=== PATIENT | female | born 1985 | race African-American/Black ===

== ENCOUNTER 2022-04-17 08:26 | Emergency (ER) | payer OTHER, SELFPAY ==
[2022-04-17 08:39] VITALS: BP 120/62; PULSE 62; RESP 16; TEMP 36; O2SAT 99
--- NOTE | 2022-04-17 09:15 | ED.URI ---
HPI - URI/Sore Throat General Chief Complaint: Upper Respiratory Infection Stated Complaint: uri Time Seen by Provider: 04/17/22 09:15 Source: patient and RN notes reviewed Mode of arrival: ambulatory Limitations: no limitations History of Present Illness HPI Narrative: 36 year female presented for complaint of sinus pressure and congestion for 2 weeks. Endorses mild nonproductive cough. She denies shortness of breath, wheezing, nausea, vomiting, diarrhea, fevers or chills. She has taken qiwc-jrp-crrhbqo medication without relief in symptoms. She is currently . MD elicited complaint: cough Related Data Home Medications Medication Instructions Recorded Confirmed ferrous sulfate 325 mg (65 mg 325 mg PO DAILY 04/17/22 04/17/22 iron) tablet norethindrone (contraceptive) 0.35 0.35 mg PO DAILY 04/17/22 04/17/22 mg tablet Allergies Allergy/AdvReac Type Severity Reaction Status Date / Time No Known Allergies Allergy Verified 04/17/22 08:59 Review of Systems Review of Systems: Per HPI [facility] Family History Family History Father Family history of endocrine disorder Hypertension Family history of elevated blood lipids Mother Patient's mother is in good health Social History Social History Smoking status: Never smoker Alcohol intake: current Exam Narrative: GENERAL: well-appearing EYES: PERRLA, conjunctivae clear ENT: Mucous membranes moist. TMs pearly [place] with dull light reflex bilaterally; no tragal tenderness. Oropharynx mildly erythematous without lesions or exudate CHEST: Clear to auscultation, breath sounds equal. No wheezing, rhonchi, rales, or stridor. No respiratory distress, speaks in full sentences. HEART: Regular rate and rhythm. No murmur heard. SKIN: Warm, dry, no rash. NEURO: Alert and oriented x3. PSYCH: Normal mood and affect Course Course Emergency Course: Patient is aware of diagnosis, understands and agrees to treatment plan. Anticipatory guidance given. Patient agrees to follow-up as directed and is aware of reasons to seek care at the emergency department. Portions of this record may have been created with voice recognition software Level of Care: Express Care Visit Vital Signs Vital signs: Vital Signs Temperature 96.8 F L 04/17/22 08:39 Pulse Rate 62 04/17/22 08:39 Respiratory Rate 16 04/17/22 08:39 Blood Pressure 120/62 04/17/22 08:39 Pulse Oximetry 99 04/17/22 08:39 Oxygen Delivery Room Air 04/17/22 08:39 Temperature 96.8 F L 04/17/22 08:39 Pulse Rate 62 04/17/22 08:39 Respiratory Rate 16 04/17/22 08:39 Blood Pressure 120/62 04/17/22 08:39 Pulse Oximetry 99 04/17/22 08:39 Oxygen Delivery Room Air 04/17/22 08:39 reviewed MDM - URI/Sore Throat MDM Narrative Medical decision making narrative: Advised supportive measures and signs/symptoms to go to the ER. Pt is appropriate for outpt treatment and f/u. Differential Diagnosis Differential diagnosis: Likely upper respiratory infection, sinusitis and viral infection Discharge Plan Discharge Clinical Impression: Upper respiratory infection Patient Disposition: Home, Self-Care Condition: Stable Instructions: Antibiotic Form, Rhinosinusitis (ED) Additional Instructions: Take antibiotic as directed Recommend Flonase spray and saline nasal spray Tylenol 1000mg every 8 hours as needed for pain Symptomatic treatment includes: rest, fluids, and increase humidity of the air at home. Follow up with your primary care provider in 1 week. Go to the ER for worsening symptoms or concerns. Prescriptions: New amoxicillin-pot clavulanate 875-125 mg tablet 1 tablet PO Q12H 7 Days Qty: 14 0RF No Action ferrous sulfate 325 mg (65 mg iron) tablet 325 mg PO DAILY norethindrone (contraceptive) 0.35 mg tablet 0.35 mg PO
== END 2022-04-17 09:27 | disposition home or self-care (01) ==
PROVIDERS: Emergency Provider Nurse Practitioner Family
DX: J06.9 Acute upper respiratory infection, unspecified (principal)
CPT/HCPCS: 99213; G0463

== ENCOUNTER 2023-03-24 11:27 | Emergency (ER) | payer OTHER, SELFPAY ==
[2023-03-24 11:36] VITALS: BP 114/65; PULSE 68; RESP 16; TEMP 36.9; O2SAT 100
--- NOTE | 2023-03-24 12:31 | ED.EYEPROB ---
HPI - Eye Problem General Chief complaint: Eye Problems Stated complaint: Left Eye Irritation Time Seen by Provider: 03/24/23 12:31 Source: patient, RN notes reviewed and old records reviewed Mode of arrival: ambulatory Limitations: no limitations History of Present Illness HPI Narrative: 37-year-old female presents to the [facility] with complaints of left eye irritation since yesterday. Eye is red, states that she does not were contact lenses. Denies any visual changes, trauma. Describes it as being itchy and feeling like seen in her eye. Reports having the eye crusted shut this morning Onset (ago): day(s) (1) Treatments Prior to Arrival: none Related Data Home Medications Medication Instructions Recorded Confirmed norethindrone (contraceptive) 0.35 0.35 mg PO DAILY 04/17/22 03/24/23 mg tablet Allergies Allergy/AdvReac Type Severity Reaction Status Date / Time No Known Allergies Allergy Verified 03/24/23 11:41 Review of Systems Review of Systems: All systems reviewed & are unremarkable except as noted in HPI and below Constitutional: Constitutional: Reports no additional constitutional complaints Eyes: Eyes: Reports as per HPI, Reports eye discharge and Reports irritation ENT: Reports system reviewed and no additional complaints, except as documented Cardiovascular: Cardiovascular: Reports no additional cardiovascular complaints, Denies chest pain and Denies dyspnea Respiratory: Respiratory: Reports no additional respiratory complaints, Denies chest congestion, Denies cough and Denies dyspnea Gastrointestinal: Gastrointestinal: Reports no additional gastrointestinal complaints, Denies abdominal pain, Denies nausea and Denies vomiting Musculoskeletal: Musculoskeletal: Reports no additional musculoskeletal complaints Integumentary/Breasts: Skin/Breast: Reports system reviewed and no additional complaints, except as docu Neurologic: Reports system reviewed and no additional complaints, except as documented Psychiatric: Psychiatric: Reports no additional psychiatric complaints Allergic/Immunologic: Allergic/Immunologic: Reports no additional allergic/immunologic complaints [facility] Family History Family History Father Family history of endocrine disorder Hypertension Family history of elevated blood lipids Mother Patient's mother is in good health Social History Social History Smoking status: Never smoker Alcohol intake: current Comments At the time of my signature, I reviewed and agree with the nursing past medical, surgical, social, and family history. There is no relevant family history pertinent to the patient complaint. Exam Const: General: cooperative, healthy appearing, comfortable, no acute distress, well developed, alert and well nourished Nutritional Appearance: well nourished Orientation/consciousness: patient oriented x3 Limitations: no limitations HENMT: Head: normal to inspection Ears: hearing grossly normal bilaterally and external ears normal Face/Nose/Sinus: Normal external nose present, Normal nares present, Normal nasal mucous membranes and turbinates present, normal facial exam and face symmetric Face and sinus: normal facial exam and face symmetric Mouth: Yes Normal oral and palatal mucosa present, Yes lip normal and Yes moist mucous membranes Throat: posterior oropharynx normal and uvula midline Eyes: General: appearance normal, both eyes and all related structures Alignment and Position: alignment normal Periorbital: periorbital findings normal Conjunctivae: conjunctival abnormality left conjunctival injection localized and discharge mucoid and purulent (Left) Pupils: Equal, round and reactive pupils present EOM: EOMs intact bilaterally Neck: Neck: normal visual inspection, full ROM, no lymphadenopathy and no meningeal signs Chest: Chest palpation & in
== END 2023-03-24 12:43 | disposition home or self-care (01) ==
PROVIDERS: Emergency Provider Nurse Practitioner
DX: H10.32 Unspecified acute conjunctivitis, left eye (principal)
CPT/HCPCS: 99213; G0463

== ENCOUNTER 2024-04-10 12:51 | Emergency (ER) | payer OTHER, SELFPAY ==
[2024-04-10 13:06] VITALS: BP 112/66; PULSE 84; RESP 16; TEMP 36.3; O2SAT 100
--- NOTE | 2024-04-10 13:54 | ED.URI ---
HPI - URI/Sore Throat General Chief Complaint: Upper Respiratory Infection Stated Complaint: Bodyaches/Fever Time Seen by Provider: 04/10/24 13:54 Source: patient, RN notes reviewed and old records reviewed Mode of arrival: ambulatory Limitations: no limitations History of Present Illness HPI Narrative: Patient presents with complaints of flu-like symptoms for 3-4 days that are improving. She is accompanied by her son who is also experiencing flu-like symptoms. She reports her symptoms began with body aches, fever, cough. She reports all symptoms most intense on the 1st couple of days, have been gradually improving. She denies any injury or trauma. She is not in any distress. She has been taking bjop-nxm-xryuvim medications for her symptoms, she reports egjl-fty-kneaxim medications have been fairly helpful for everything except for the cough. She denies any shortness of breath. Denies any wheezing. Related Data Home Medications ?Medication ?Instructions ?Recorded ?Confirmed ?Last Taken ?Type norethindrone (contraceptive) 0.35 0.35 mg PO DAILY 04/17/22 04/10/24 Unknown History mg tablet meloxicam 15 mg tablet 15 mg PO .QD 04/10/24 04/10/24 Unknown History Allergies Allergy/AdvReac Type Severity Reaction Status Date / Time No Known Allergies Allergy Verified 04/10/24 13:48 Review of Systems Review of Systems: All systems reviewed & are unremarkable except as noted in HPI and below Constitutional: Constitutional: Reports no additional constitutional complaints ENT: Reports system reviewed and no additional complaints, except as documented Cardiovascular: Cardiovascular: Reports no additional cardiovascular complaints Respiratory: Respiratory: Reports no additional respiratory complaints Gastrointestinal: Gastrointestinal: Reports no additional gastrointestinal complaints [facility] Family History Family History Father Family history of endocrine disorder Hypertension Family history of elevated blood lipids Mother Patient's mother is in good health Social History Social History Smoking status: Never smoker Alcohol intake: current Comments At the time of my signature, I reviewed and agree with the nursing past medical, surgical, social, and family history. There is no relevant family history pertinent to the patient complaint. Exam Const: General: cooperative, no acute distress, alert, awake and tired appearing Orientation/consciousness: oriented to person, oriented to place and oriented to time HENMT: Head: normal to inspection Ears: TM's normal bilaterally Resp: Effort & Inspection: normal respiratory effort and able to speak in complete sentences Auscultation: clear to auscultation bilaterally, no crackles, no rales, no rhonchi and no wheezes Cardio: Palpation: normal PMI Rate: regular rate Rhythm: regular rhythm Heart sounds: S1 normal heart sound present and S2 normal heart sound present Neuro: General: oriented to person, oriented to place and oriented to time Cranial nerves: Yes CN's II-XII intact bilaterally Psych: Appearance: grossly normal Thought process: Normal thought process present Insight: Good insight present (Psych) Judgement: Good judgement present (Psych) Course Course Level of Care: Express Care Visit Vital Signs Vital signs: Vital Signs Temperature 97.3 F L 04/10/24 13:06 Pulse Rate 84 04/10/24 13:06 Respiratory Rate 16 04/10/24 13:06 Blood Pressure 112/66 04/10/24 13:06 Pulse Oximetry 100 04/10/24 13:06 Oxygen Delivery Room Air 04/10/24 13:06 Temperature 97.3 F L 04/10/24 13:06 Pulse Rate 84 04/10/24 13:06 Respiratory Rate 16 04/10/24 13:06 Blood Pressure 112/66 04/10/24 13:06 Pulse Oximetry 100 04/10/24 13:06 Oxygen Delivery Room Air 04/10/24 13:06 Reviewed MDM - URI/Sore Throat MDM Narrative Medical decision making narrative: Patient with classic flu-like symptoms, rate improving. Reassuring physical exam. Continue supportive care measures at home, prescription cough medicine. Discharge instructions reviewed with patient, as well as provided in writing per nursing staff. The instructions also include specific and strict return/GO TO THE ER as well as f/u information. All questions have been answered, and the patient deny any further questions with discharge and discharge plan. Some parts of this dictation were generated by voice recognition software and may contain typographical and/or grammatical inaccuracies. Differential Diagnosis Differential diagnosis: Likely upper respiratory infection, otitis media, sinusitis, viral infection and bronchitis Medical Records Attestation: I reviewed the patient's medical records. Discharge Plan Discharge Clinical Impression: Upper respiratory infection Qualifiers: URI type: unspecified viral URI Qualified Code(s): J06.9 - Acute upper respiratory infection, unspecified Patient Disposition: Home, Self-Care Condition: Stable Instructions: Antibiotic Form, Cold Symptoms (ED) Additional Instructions: Take medications as prescribed. Follow with primary care provider. Emergency department for new or worse symptoms Patient Language: Filipino Prescriptions: New benzonatate 200 mg capsule 200 mg PO TID PRN (Reason: cough) Qty: 30 0RF No Action norethindrone (contraceptive) 0.35 mg tablet 0.35 mg PO DAILY meloxicam 15 mg tablet 15 mg PO .QD Follow-up/Referrals: [facility] [Primary Care Provider] - 2 Weeks Time of Disposition: 14:15
== END 2024-04-10 14:20 | disposition home or self-care (01) ==
PROVIDERS: Emergency Provider Nurse Practitioner Family
DX: J06.9 Acute upper respiratory infection, unspecified (principal); Z79.1 Long term (current) use of non-steroidal anti-inflammatories (NSAID)
CPT/HCPCS: 99213; G0463